=== PATIENT | male | born 1970 | race Caucasian/White ===

== ENCOUNTER 2023-09-27 15:40 | Emergency (ER) | payer OTHER ==
[2023-09-27] MEDS ORDERED: Acetaminophen/HYDROcodone 325-5 MG Tab PO ONE (15:41)
[2023-09-27] MEDS: Ketorolac 30 MG/ML SDV IM ONE (16:23)
[2023-09-27] MEDS: HYDROmorphone 2 MG/ML SDV IM ONE (17:32)
[2023-09-27] MEDS: Ondansetron 4 MG Tab.DIS PO ONE (17:33)
== END 2023-09-27 18:02 | disposition home or self-care (01) ==
LOC: FB.ED 15:40
DX: M62.830 Muscle spasm of back (principal)
CPT/HCPCS: 96372; 99283; 99284; A9270-GY; J1170; J1885; J3360; Q0162